=== PATIENT | female | born 1980 | race Caucasian/White ===

== ENCOUNTER 2018-08-07 12:33 | Outpatient (REF) | payer BC, SELFPAY ==
--- NOTE | 2018-08-07 11:30 | PAPFT_PTH ---
PATIENT: Irma Piedra LOC: [facility] U#:[id number] AGE/SX: 38/F ROOM: RE08/07/[address]: RENEE Bentley : 1980 BED: DIS: 08/07/2018 SPEC #: [id number] RECD: 08/07/18 13:16 STATUS: DIPAK REInessa #: [id number] SILVIA: 08/07/18 11:[address]: Gena Leggett DEPT: [facility] Cytology RECD BY: Teetee Weldon ENTERED: 08/07/18 13:16 SP TYPE: PAPFT OTHR DR: Carlos A Dickey Tissues: 1 - CX/ENDOCX FOR PAP SMEARS Procedures: PAP THIN PREP/UVM Screening HPV DNA PROBE Comments: [id number]
== END 2018-08-07 12:53 ==
LOC: LBN 12:33
PROVIDERS: PCP Family Medicine; Visit Provider Nurse Practitioner Family
DX: Z12.4 Encounter for screening for malignant neoplasm of cervix (principal); Z11.51 Encounter for screening for human papillomavirus (HPV)
CPT/HCPCS: 88142; 87624

== ENCOUNTER 2018-09-04 11:48 | Outpatient (REF) | payer BC, SELFPAY ==
--- NOTE | 2018-09-04 11:40 | ENDO_PTH ---
PATIENT: rIma Piedra LOC: [facility] U#:[id number] AGE/SX: 38/F ROOM: RE09/04/[address]: Cherelle Domínguez MD : 1980 BED: DIS: 09/04/2018 SPEC #: [id number] RECD: 09/04/18 17:39 STATUS: DIPAK REInessa #: [id number] SILVIA: 09/04/18 11:[address]: Cherelle Domínguez DEPT: Surgical Specimen RECD BY: Teetee Weldon ENTERED: 09/04/18 17:40 SP TYPE: Endo OTHR DR: Gena Leggett, Carlos A Jones Tissues: 1 - ENDOCERVICAL BX/CURRETTE 2 - CERVICAL BIOPSY 3 - CERVICAL BIOPSY 4 - CERVICAL BIOPSY Procedures: GROSS AND MICRO LEVEL 4 Comments: [id number]
== END 2018-09-04 12:08 ==
LOC: LBN 11:48
PROVIDERS: PCP Family Medicine; Visit Provider Obstetrics & Gynecology
DX: N87.9 Dysplasia of cervix uteri, unspecified (principal); R87.610 Atypical squamous cells of undetermined significance on cytologic smear of cervix (ASC-US); B97.7 Papillomavirus as the cause of diseases classified elsewhere
CPT/HCPCS: 88305

== ENCOUNTER 2018-09-26 03:39 | Outpatient (CLI) | payer BC, SELFPAY ==
--- NOTE | 2018-09-26 08:05 | DI.US_ITS ---
SYMPTOM/DIAGNOSIS: SYMPTOMATIC CHOLELITHIASIS, K80.20, KNOWN LARGE GALLSTONES, INCREASING BILIARY COLIC ABDOMEN ULTRASOUND: The aorta and vena cava are intact. The liver is top limits of normal in size. There is a 3.5 by 3.7 cm. gallstone in the gallbladder fundus. The gallbladder wall is intact. There is no pericholecystic fluid. There is no evidence of ductal dilatation. The pancreas is normal. The spleen is normal. The kidneys are unremarkable, the left kidney measures 10.9 cm. and the right kidney measures 10.8 cm. There is no evidence of free abdominal fluid. IMPRESSION: Findings consistent with cholelithiasis with a large gallstone measuring up to 3.5 by 3.7 cm. in the gallbladder. The findings are similar to a previous study dating back to 11/11/10. No acute abnormality is seen.
[2018-09-26 10:01] LABS: ALT 20 U/L (12-78); AST 9 U/L (15-37); Albumin 3.8 g/dL (3.4-5.0); Alkaline Phosphatase 134 U/L (46-116); Anion Gap 10.6 mmol/L (3-11); BUN 10 mg/dL (7-18); Bilirubin, Total 0.9 mg/dL (0.2-1.0); CO2 24.4 mmol/L (21.0-32.0); CREATININE 0.82 mg/dL (0.55-1.02); Calcium 9.8 mg/dL (8.5-10.1); Chloride 105 mmol/L (98-107); Cholesterol 170 mg/dL (50-200); Glucose 96 mg/dL (70-100); HDL Cholesterol 45 mg/dL (40-60); LDL CHOLESTEROL 112 mg/dL (<100); Potassium 4.2 mmol/L (3.5-5.1); Sodium 140 mmol/L (136-145); Triglyceride 56 mg/dL (30-150)
== END 2018-09-26 03:59 ==
PROVIDERS: PCP Family Medicine; Visit Provider Family Medicine
DX: K80.20 Calculus of gallbladder without cholecystitis without obstruction (principal); Z00.00 Encounter for general adult medical examination without abnormal findings; Z13.220 Encounter for screening for lipoid disorders
CPT/HCPCS: 36415; 80053; 80061; 83721; 76700

== ENCOUNTER 2018-11-13 07:01 | Day surgery (SDC) | payer BC, SELFPAY ==
[2018-11-13] VITALS (10 sets, daily range): BP systolic 90–120; BP diastolic 48–85; PULSE 68–76; RESP 16–27; TEMP 35.1–36.4; O2SAT 92–98
[2018-11-13] MEDS: Lactated Ringers 1,000 ML 100 ML IV (08:05)
[2018-11-13] MEDS: ceFAZolin 2 GM/50 ML BAG IVPB (08:16)
[2018-11-13] MEDS: Bupivacaine 0.25% Pres-Free 30 ML VIAL (08:43)
--- NOTE | 2018-11-13 09:18 | GB_PTH ---
PATIENT: Irma Piedra LOC: [facility] U#:[id number] AGE/SX: 38/F ROOM: RE11/13/[address]: Tamar Godwin : 1980 BED: DIS: 11/13/2018 SPEC #: [id number] RECD: 11/13/18 12:48 STATUS: DIPAK REQ #: [id number] SILVIA: 11/13/18 09:[address]: Tamar Godwin DEPT: Surgical Specimen RECD BY: Teetee Weldon ENTERED: 11/13/18 12:49 SP TYPE: GB OTHR DR: Carlos A Dickey Tissues: 1 - GALLBLADDER Procedures: GROSS AND MICRO LEVEL 3 Comments: [id number]
[2018-11-13] MEDS: Cellulose,Oxidized 4X8 1 PACKET MC (09:21)
--- NOTE | 2018-11-13 09:39 | ROE_ITS ---
Date of service: 11/13/18 Time of Service: 09:38 Operative Note DATE OF PROCEDURE: 11/13/18 PRE-OP DIAGNOSIS: chronic aureliano w/ stones POST-OP DIAGNOSIS: other (same ) PROCEDURE: lap aureliano SURGEON: Tamar Borden RESTRICTIVE PREPARATION OPERATOR: Tamar Ryan ANESTHESIA: GETA ESTIMATED BLOOD LOSS: 10 PATHOLOGY: other COMPLICATIONS: None Patient was transported to: PACU Patient's condition: stable Procedure Description: PRE-OPERATIVE DIAGNOSIS: cholecystitis, cholelithiasis. POST-OPERATIVE DIAGNOSIS: chronic cholecystitis, cholelithiasis PROCEDURE: Laparoscopic cholecystectomy. SURGEON: Tamar Borden DO ANESTHESIA: General. ESTIMATED BLOOD LOSS: Less than 10 mL COMPLICATIONS: none The patient tolerated the procedure without complication. INDICATIONS: The pt seen at the request of regarding acute on chronic cholecystitis, cholelithiasis and is here today for laparoscopic cholecystectomy. Informed consent was obtained, explaining risks and benefits of the procedure including but not limited to bleeding, infection, pneumonia, blood clots, possible damage to bowel, bladder, blood vessels, bile ducts, possible open procedure, complications of general anesthesia and other un foretold complications. PROCEDURE:The patient agrees and is brought to the operative room suite and placed in supine position. Anesthesia was administered per the Department of Anesthesia. The patient did receive IV antibiotics. NG tube and Kaplan catheter are placed. The patient was prepped and draped in the usual sterile fashion using DuraPrep scrub solution. Pause for the cause was done. 20 mL of 1% buffered lidocaine was used for local anesthetization. A stab incision was made in the umbilicus and the Verres inserted. Drop test was positive and insufflation was begun. When 15 mm of pressure was noted on the monitor, the Veress was removed and #5 port inserted. The camera was inserted through the port and shows no damage to underlying structures. A 10 mm port was then placed in the epigastric position under direct visualization following creation of local field blocks as well as two 5 mm ports in the right upper quadrant. The gallbladder fundus was grasped and retracted towards the right shoulder. Infundibulum was grasped and retracted laterally. The hepat-duodenal ligament is entered. The cystic duct and artery are dissected out and the most inferior portion of the gallbladder plate is removed from the liver and the critical view of safety was obtained after clearing away all fatty material. Endo Clips were placed across the duct and artery and these structures are divided. The remainder of the gallbladder was excised from the liver bed. The gallbladder was placed in a bag and brought out. Examination of the gallbladder shows indeed the cystic duct and artery to have been divided. The remainder of the abdomen was copiously irrigated with a liter of saline. All saline is removed. There is no bleeding or bile leakage from the liver bed or the clips sites. The Ruddy-T hompson needle was used to close the 10 mm port site with an 0 Vicryl. All ports and instruments are removed. Pneumoperitoneum is evacuated and the port sites are monitored to make sure there is no bleeding at the time of desufflation. Port sites are irrigated and the skin is closed with 4-0 Monocryl in a running subcuticular fashion. Steri tapes and sterile dressings are applied. The patient tolerated the procedure well without complications, transferred to the recovery room in stable condition. TAMAR BORDEN, DO
--- NOTE | 2018-11-13 09:45 | PDOC.DSDIS_ITS ---
Discharge Plan Disposition Patient Disposition: HOME Condition: Good Discharge Details Reason For Visit: GB removal Attending Provider: Tamar Godwin Primary Care Provider: Carlos A Dickey Home Meds and New Rx's Prescriptions: New tramadol [Ultram] 50 mg tablet 50 mg PO .q4 PRN (Reason: pain) Qty: 14 RF: 0 ibuprofen 800 mg tablet 800 mg PO TID PRN (Reason: pain ) Qty: 30 RF: 4 ondansetron HCl [Zofran] 4 mg tablet 4 mg PO TID-QID PRN (Reason: nausea) Qty: 5 RF: 0 Continued medroxyprogesterone [Depo-Provera] 150 mg/mL suspension 150 mg IM Q 12 WEEKS Qty: 1 RF: 3 Discharge Instructions Additional Instructions: Care after Gallbladder Surgery -You should walk frequently, gradually, increasing the distance. You may climb stairs, just go slowly. -You can take Advil 400mg 3 times a day with food for the first week for pain; you may take your prescription medication as prescribed-in addition to the Advil. Discontinue Advil if it hurts your stomach. Do not take Advil if you are intolerant to aspirin products or have stomach problems. ? Use an ice bag for the first 72 hours. This helps to decrease swelling, which causes pain. It is normal to be more sore/painful and swollen towards the end of the day and first thing in the morning. ? Gallbladder surgery can make you very nauseated; use zofran for nausea, for the first 24 hours. The nausea generally stops after 24 hours. ? Use milk of magnesia or prune juice to prevent constipation (this is a parti cular side effect of pain medication). Do not allow yourself to become constipated. ? Avoid fatty or greasy foods; introduce these slowly, with care, after about 1 month. Follow the low-fat diet sheet that will be given to you at the office or hospital. ? Start out eating very small, bland amounts of food. Do not take pain pills on an empty stomach. - You can remove the band-aids and take a shower 24 hours after surgery. There will be some narrow strips of tape across your incisions (under the band- aids). DO NOT REMOVE THESE. It is all right if they get wet. They will be removed in the doctor?s office. ? Do not go swimming or sit in a hot tube for two weeks. ? Replace the band-aids with clean, dry ones or leave them off. ? There are no stitches to remove. ? Do not drive your car for one week and then only if you have no pain and can move freely. Do not drive if you are taking pain narcotic pain medications. ? You may resume sexual activity whenever pain and soreness subside in 2 weeks. ? Do no lift anything over 5 lbs for the first 10 days. Minimize strenuous activity for the next two weeks. ? You may return to work in one week, or when you feel able ? You should return to Dr. Godwin?s office for a post-op appointment about one week after surgery. My Medications for pain are: ibuprofen and ultram nausea are: Zofran When to Call the Office: ? If the incision becomes red or swollen, or there is more than a little drainage from it. ? If you develop a temperature higher than 100.5 F. ? If your eyes turn yellow ? Vomiting and can?t keep fluids down Activity:: no lifting over 5#'s. no strenuous acitivty x 2 wks. no driving for 3 days Remove Dressings/Wound Care:: 24 hours Shower/Bathe:: 24 hours Diet:: low fat x 1 wk Discharge Orders Discharge Orders: Discharge Order (Routine); Ordered 11/13/18 Ordered By: Tamar Godwin DS: Diagnosis Discharge Diagnosis (1) Chronic cholecystitis with calculus: Start date: 11/13/18 Start time: 09:45 Status: Acute
[2018-11-13] MEDS: fentaNYL 100 MCG/2 ML VIAL IVP (10:15)
[2018-11-13] MEDS: traMADol 50 MG TAB PO (12:06)
== END 2018-11-13 13:05 | disposition home or self-care (01) ==
PROVIDERS: PCP Family Medicine; Visit Provider Surgery
PROC: 0FT44ZZ Resection of Gallbladder, Percutaneous Endoscopic Approach (ICD-10-PCS; CPT 47562; principal; 2018-11-13 08:00)
DX: K80.10 Calculus of gallbladder with chronic cholecystitis without obstruction (principal)
CPT/HCPCS: 47562; 88304; J0690; J1100; J1885; J2405; J3010

== ENCOUNTER 2019-08-04 17:30 | Emergency (ER) | payer BC, SELFPAY ==
[2019-08-04 17:33] VITALS: BP 137/101; PULSE 98; RESP 18; TEMP 36.6; O2SAT 99
--- NOTE | 2019-08-04 18:15 | ED.GENADUL_ITS ---
Discharge Plan Disposition Patient Disposition: HOME Condition: Stable Discharge Details Chief Complaint: Sorethroat Clinical Impression: Viral URI with cough, Pharyngitis Primary Care Provider: Carlos A Dickey ED Provider: Melissa Michelle Home Meds and New Rx's Prescriptions: Continued medroxyprogesterone [Depo-Provera] 150 mg/mL suspension 150 mg IM Q 12 WEEKS Qty: 1 RF: 3 ibuprofen 800 mg tablet 800 mg PO TID PRN (Reason: pain ) Qty: 30 RF: 4 acetaminophen 500 mg Tablet RF: 0 Discharge Instructions Instructions: Pharyngitis (ED), Upper Respiratory Infection (ED), Acute Cough (ED) Additional Instructions: Drink plenty of fluids and get plenty of rest. Alternate tylenol and motrin as needed and directed for pain. Continue with [id number] cough and cold medication. Follow-up with your primary care doctor in 1 week. Return to the emergency department with any worsening or new concerning symptoms. Discharge Data Discharge Physician: Melissa Michelle Medical Decision Making 39-year-old female presents with sore throat, dry cough, runny nose for the past 3 days. 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 She denies any fever, shortness of breath. She is afebrile. She appears nontoxic. Rapid strep negative. Normal ENT exam. Lungs clear. No trismus, drooling or submandibular swelling. No peritonsillar abscess. Discussed with patient that symptoms can likely be viral in nature and recommend symptomatic treatment. Advised to increase fluids, rest. Advised to follow up with the primary care doctor for re-evaluation. Usual and customary return precautions given prior to discharge. HPI General Mode of arrival: ambulatory . Date/Time Provider Initiated Documentation: 08/04/19 17:31 . Limitations to Documentation: no limitations . Information obtained by: patient . History of Present Illness 39 year old F presents to the emergency department with the chief complaint of Cough, sore throat, runny nose, Patient started experiencing this day(s) (3) and it has been constant. No relieving factors improve symptom(s), No exacerbating factors reported . Patient notes cough; denies chest pain, diaphoresis, fever/chills, headaches, loss of appetite, malaise, nausea/vomiting, rash, seizure, shortness of breath, syncope and weakness. Patient did receive the following treatments prior to arrival, other (She has been taking DayQuil) Related Data Home Medications Medication Instructions Recorded Confirmed ibuprofen 800 mg PO TID PRN #30 tab 11/13/18 medroxyprogesterone 150 mg/mL 150 mg IM Q 12 WEEKS #1 vial 07/02/19 08/04/19 intramuscular suspension acetaminophen 08/04/19 Previous Rx's Medication Instructions Recorded ibuprofen 800 mg PO TID PRN #30 tab 11/13/18 medroxyprogesterone 150 mg/mL 150 mg IM Q 12 WEEKS #1 vial 07/02/19 intramuscular suspension Allergies Allergy/AdvReac Type Severity Reaction Status Date / Time levofloxacin [From Levaquin] Allergy Mild Verified 08/04/19 17:36 oxycodone [From Percocet] AdvReac Intermediate Nausea Verified 08/04/19 17:36 General Stated Complaint: Sorethroat JOANNE: 4 Review of Systems All systems reviewed & are unremarkable except as noted in HPI and below Constitutional Constitutional: Reports as per HPI, Denies chills and Denies fever(s) Eyes Eyes: Denies blurry vision ENT Ears, Nose, Mouth, and Throat: Denies dizziness, Reports sore throat and Denies throat swelling Cardiovascular Cardiovascular: Denies chest pain and Denies dyspnea Respiratory Respiratory: Reports cough and Denies dyspnea Gastrointestinal Gastrointestinal: Denies abdominal pain, Denies diarrhea and Denies vomiting Genitourinary Genitourinary: Denies hematuria and Denies dysuria Musculoskeletal Musculoskeletal: Denies back pain and Denies numbness Integumentary/Breasts Skin/Breast: Denies lesions and Denies rash Neurologic Neurologic: Denies dizziness, Denies focal weakness and Denies numbness Allergic/Immunologic Allergic/Immunologic: Denies throat swelling [facility] Medical History Athletes foot (Acute) bilat Chronic cholecystitis with calculus (Acute) Contraception (Chronic 05/19/15) Eczema (Acute) Family history of colon cancer (Chronic 07/05/16) Mother Dx at 58 Plantar fasciitis, left (Chronic) Symptomatic cholelithiasis (Acute) Tobacco use (Chronic 05/19/15) Surgical History H/O tooth extraction (Acute) Hx of cholecystectomy (Resolved 11/13/18) Dr Tamar Godwin, [facility] Family History Mother Colon cancer Social History Smoking/Tobacco Use Status: Current every day Tobacco Type: cigarettes Alcohol Intake: never Drug use: Never Substance use type: does not use Do you feel safe at home: Yes Do you feel safe in your relationship?: Yes Female Reproductive History Menstrual control method: progesterone injection History History 3 Para 2 Hx # Term Pregnancies Multiple births Hx # Pregnancies Ectopic pregnancies AB induced Hx Number of Living Children AB spontaneous Exam Const General: cooperative, healthy appearing and no acute distress HENMT Head: normal to inspection Ears: hearing grossly normal bilaterally, external ears normal and TM's normal bilaterally General nose exam: external nose normal Mouth: oral mucosae normal, no drooling and no trismus Throat: posterior oropharynx normal, tonsils normal, uvula midline and no peritonsillar masses Eyes General: appearance normal, both eyes and all related structures Neck Neck: normal visual inspection, no lymphadenopathy, no meningeal signs, trachea midline, supple and No submandibular swelling Resp Effort & Inspection: normal respiratory effort and able to speak in complete sentences Auscultation: clear to auscultation bilaterally Cardio Rate: regular rate Rhythm: regular rhythm Skin General skin exam: no rashes or lesions noted Neuro General: alert, awake and oriented x3 Motor: muscle tone normal throughout Extrem General: normal to inspection and full ROM Psych Appearance: grossly normal Affect: normal affect Course Vital Signs Vital signs: Vital Signs Temperature 97.9 F 08/04/19 17:33 Pulse 98 H 08/04/19 17:33 Respiratory Rate 18 08/04/19 17:33 Blood Pressure 137/101 H 08/04/19 17:33 Pulse Oximetry 99 08/04/19 17:33 Temperature 97.9 F 08/04/19 17:33 Temperature Source Temporal Artery Scan 08/04/19 17:33 Pulse 98 H 08/04/19 17:33 Respiratory Rate 18 08/04/19 17:33 Blood Pressure 137/101 H 08/04/19 17:33 Blood Pressure Position Sitting 08/04/19 17:33 Pulse Oximetry 99 08/04/19 17:33 Oxygen Delivery Method Room Air 08/04/19 17:33 Oxygen Flow Rate 0 08/04/19 17:33 Pain Level 8 08/04/19 17:33 Lab/Test Results Lab/Test Results: 08/04/19 17:41 Pharynx Streptococcus Screen (MANUEL) - Pending POC Strep Test-KATI(Rapid) Start: 08/04/19 17:39 Freq: .Rapid Strep Test Status: Active Protocol: Document 08/04/19 17:50 MM (Rec: 08/04/19 17:51 MM [id number]) Strep test-KATI(Rapid)-POC POC-Strep test-KATI (Rapid) Negative POC-Strep test-KATI (Rapid) Negative
[2019-08-04 18:23] VITALS: BP 137/101; PULSE 98; RESP 18; TEMP 36.6; O2SAT 99
== END 2019-08-04 18:25 | disposition home or self-care (01) ==
PROVIDERS: Emergency Provider Physician Assistant; PCP Family Medicine
DX: J02.8 Acute pharyngitis due to other specified organisms (principal); J06.9 Acute upper respiratory infection, unspecified; R05 Cough; B34.9 Viral infection, unspecified
CPT/HCPCS: 87880; 99282; 87081

== ENCOUNTER 2019-09-19 10:56 | Outpatient (REF) | payer BC, SELFPAY ==
--- NOTE | 2019-09-19 10:30 | PAPFT_PTH ---
PATIENT: Irma Piedra LOC: [facility]#:[id number] AGE/SX: 39/F ROOM: RE09/19/[address]: RENEE Bentley : 1980 BED: DIS: 09/19/2019 SPEC #: [id number] RECD: 09/19/19 17:31 STATUS: DIPAK REQ #: [id number] SILVIA: 09/19/19 10:[address]: Gena Leggett DEPT: [facility] Cytology RECD BY: Teetee Weldon ENTERED: 09/19/19 17:31 SP TYPE: PAPFT OTHR DR: Carlos A Dickey Tissues: 1 - CX/ENDOCX FOR PAP SMEARS Procedures: PAP THIN PREP/UVM Screening HPV DNA PROBE Comments: [id number]
[2019-09-23 14:23] LABS: Chlamydia Result Negative (Negative); GC Result Negative (Negative)
== END 2019-09-19 11:16 ==
LOC: NCHCN 10:56
PROVIDERS: PCP Family Medicine; Visit Provider Nurse Practitioner Family
DX: Z11.3 Encounter for screening for infections with a predominantly sexual mode of transmission (principal); Z12.4 Encounter for screening for malignant neoplasm of cervix
CPT/HCPCS: 87491; 87591; 88142; 87624

== ENCOUNTER 2020-11-10 11:17 | Outpatient (REF) | payer BC, SELFPAY ==
--- NOTE | 2020-11-10 10:30 | PAPFT_PTH ---
PATIENT: Irma Piedra LOC: [facility] U#:[id number] AGE/SX: 40/F ROOM: RE11/10/[address]: RENEE Bentley : 1980 BED: DIS: 11/10/2020 SPEC #: [id number] RECD: 11/10/20 12:39 STATUS: DIPAK REQ #: [id number] SILVIA: 11/10/20 10:[address]: Gena Leggett DEPT: [facility] Cytology RECD BY: Roula Ashford ENTERED: 11/10/20 12:40 SP TYPE: PAPFT OTHR DR: Carlos A Dickey Tissues: 1 - CX/ENDOCX FOR PAP SMEARS Procedures: PAP THIN PREP/UVM Screening HPV DNA PROBE Comments: [id number]
== END 2020-11-10 11:18 | disposition home or self-care (01) ==
LOC: LBN 11:17
PROVIDERS: PCP Family Medicine; Visit Provider Nurse Practitioner Family
DX: Z12.4 Encounter for screening for malignant neoplasm of cervix (principal); Z11.51 Encounter for screening for human papillomavirus (HPV)
CPT/HCPCS: 88142; 87624

== ENCOUNTER 2021-02-02 01:23 | Outpatient (CLI) | payer BC, SELFPAY ==
--- NOTE | 2021-02-02 10:30 | DI.MAMMO_ITS ---
Exam(s) MAMMO SCREENING EXAM: MAMMO SCREENING CLINICAL HISTORY: screening TECHNIQUE: Mammograms were interpreted according to the usual protocol including computer analysis w [employer] CAD system, tomosynthesis and C-view imaging. COMPARISON: None. Baseline examination. FINDINGS: The breasts are composed of heterogeneously dense fibroglandular densities, Breast Density category C . No suspicious masses or suspicious microcalcifications are seen. No skin thickening or abnormal axillary lymph nodes are seen. IMPRESSION: BI-RADS Category 1, Negative mammogram. Yearly screening mammography is recommended. Breast Density Category C, heterogeneously Dense. The mammogram demonstrates the patient's breast tissue is dense. Dense breast tissue is very common a nd is not abnormal but dense breast tissue can make it harder to find cancer on a mammogram. Also, de nse breast tissue may increase breast cancer risk. This information about the result of the mammogram report was provided to the patient to raise their awareness. Use this report when you speak with the patient about their risks for breast cancer, which includes their family history. At that time, you may recommend additional screening tests (Ultrasound or MRI) as they might be useful based on their r isk. A negative radiographic report should not delay biopsy if a dominant or clinically suspicious mass is present. Up to ten percent of cancers are not identified on mammography. A negative report may reinforce clinical impression. Adenosis and dense breasts may obscure an underlying neoplasm. False positive reports average 6 to 10%.
== END 2021-02-02 01:43 ==
PROVIDERS: PCP Family Medicine; Visit Provider Nurse Practitioner Family
DX: Z12.31 Encounter for screening mammogram for malignant neoplasm of breast (principal); R92.8 Other abnormal and inconclusive findings on diagnostic imaging of breast
CPT/HCPCS: 77063; 77067

== ENCOUNTER 2021-05-05 02:40 | Outpatient (CLI) | payer BC, SELFPAY ==
[2021-05-05 10:10] LABS: Source Nasal/Nares
[2021-05-05 16:46] LABS: COVID-19 PCR Negative (Negative)
== END 2021-05-05 02:41 | disposition home or self-care (01) ==
LOC: LBO 02:40
PROVIDERS: PCP Family Medicine; Visit Provider Surgery
DX: Z20.822 Contact with and (suspected) exposure to COVID-19 (principal); Z01.818 Encounter for other preprocedural examination
CPT/HCPCS: 87635

== ENCOUNTER 2021-05-07 09:08 | Day surgery (SDC) | payer BC, SELFPAY ==
--- NOTE | 2021-05-06 23:14 | W.COLOREPORT ---
Colonoscopy Report Date of procedure: 05/07/21 Pre-op diagnosis general: A poly[ Surgeon: Tamar Godwin Anesthesia Type: General:No Airway Disposition: same day Prep: Miralax/Dulcolax Procedure Description: After informed consent was obtained the patient was taken to the procedure room and placed in a left decubitous position. Monitors were applied and a time out was done. The patients name, date of , procedure, allergies to medications and metal in their body was reviewed. The patient was then sedated. Once sedated and comfortable a rectal exam was done. External exam was normal. Internal exam revealed a normal sphincter tone and no palpable masses. The scope was then introduced and retrofelexed. Nointernal hemorrhoids were identified. The scope was then advanced to the cecum w/out difficulty. The TI and appendiceal orifice were identified. The prep was good. The scope was then slowly retracted over 7 minutes back into the rectum. There are no polyps, AVMs, diverticula visualized today. The scope was removed and the patient was woken up and taken back to Same day surgery in stable condition. The patient tolerated the procedure well and there were no immediate complications. Follow up: The patient should follow up in 5 years unless they develop changes in bowel habits or other new gastrointestinal complaints.
--- NOTE | 2021-05-06 23:15 | PDOC.DSDIS_ITS ---
Discharge Plan Disposition Patient Disposition: HOME Condition: Good Discharge Details Reason For Visit: colon scope Attending Provider: Sara Rodriguez Primary Care Provider: Carlos A Dickey Home Meds and New Rx's Prescriptions: Continued medroxyprogesterone [Depo-Provera] 150 mg/mL syringe 150 mg IM ONCE Qty: 1 RF: 0 medroxyprogesterone [Depo-Provera] 150 mg/mL suspension 150 mg IM Q 12 WEEKS Qty: 1 RF: 3 ibuprofen 800 mg tablet 800 mg PO TID PRN (Reason: pain ) Qty: 30 RF: 4 acetaminophen 500 mg Tablet 500 mg PO DIRECTED RF: 0 Discontinued polyethylene glycol 3350 17 gram/dose powder 238 g PO ONCE Qty: 238 RF: 0 bisacodyl [Dulcolax (bisacodyl)] 5 mg tablet,delayed release (DR/EC) 5 mg PO ONCE Qty: 4 RF: 0 Discharge Instructions Additional Instructions: DSU Colonoscopy Post- Op Instructions Instructions for Everyone who is given Anesthesia: For your safety, please do the following for the next twenty-four (24) hours: *Do Not operate a motor vehicle (car, truck, motorcycle, etc.) *Do Not drink alcoholic beverages or use any recreational drugs for the first 24 hours or while taking pain medications. The medications in your body may have a reaction that can be dangerous. *Do Not make any important decisions or sign any important papers. Findings:normal Follow up: repeat in 5 yrs 1. No lifting over 20 pounds or strenuous activity for the first 24 hours after your procedure. After 24 hours there are no restrictions on your activity but you may feel fatigued for a few days. 2. After you arrive home you may have a light meal and return to your normal diet as you can tolerate it without feeling sick to your stomach. 3. You may have a bloated, gaseous feeling in your belly (abdomen) after a colonoscopy. Passing gas and belching will help. Walking or lying down on your left side with your knees flexed may relieve the discomfort. Call the office at [phone] (Office) or [phone] (Hospital) right away if you notice any of the following: a.Vomiting of blood or ?coffee ground stools?. b.Rectal bleeding 1Tbsp, blood clots or continuous bleeding. c.Severe belly (abdominal) pain. d.A hard distended belly (abdomen) and an inability to pass gas. 4. Please don?t expect to have a normal BM (bowel movement) for 2-3 days after your procedure. 5. If there are questions regarding the findings of your procedure, please contact your doctor 6. If you are unable to contact your doctor with a problem, contact the hospital at [phone]. 7. Continue all your regular medications unless directed otherwise. I understand the above instructions and have no questions. Signature of Patient or Adult Escort Name of Responsible Adult Escort Signature of Nurse Date/Time Activity:: see above Diet:: see above Discharge Orders Discharge Orders: Discharge Order (Routine); Ordered 05/06/21 Ordered By: Tamar Godwin DS: Diagnosis Discharge Diagnosis (1) Tobacco use: Status: Chronic (2) Family history of colon cancer: Status: Chronic
--- NOTE | 2021-05-07 06:43 | ANES.PREOP_ITS ---
General Info Date of Service Date Performed: 05/07/21 Height: 5 ft 3 in Weight: 77.111 kg Body Mass Index (BMI): 30.1 Surgical Procedure: Operation Date: 05/07/21 10:35 Proposed Procedures Side Surgeon radha Godwin, DO Meds Allergies and Home Medications Allergies Allergy/AdvReac Type Severity Reaction Status Date / Time oxycodone [From Percocet] AdvReac Intermediate Nausea Verified 05/07/21 09:14 levofloxacin [From Levaquin] AdvReac Mild nausea, Verified 05/07/21 09:14 low energy Home Medication Medication Instructions Recorded ibuprofen 800 mg PO TID PRN #30 tab 11/13/18 acetaminophen 500 mg PO DIRECTED 08/04/19 medroxyprogesterone 150 mg/mL 150 mg IM Q 12 WEEKS #1 vial 04/27/21 intramuscular suspension Current Visit Medications: Current Medications Generic Name Dose Route Start Last Admin Trade Name Freq PRN Reason Stop Dose Admin Hyoscyamine Sulfate 0.125 mg 05/06/21 23:13 Hyoscyamine 0.125 Mg Sl/Oral/Chew SL DIRECTED PRN Ringer's Solution 1,000 mls @ 80 mls/hr 05/07/21 06:00 IV 05/25/21 23:59 INFUSION MICHELE IV Miscellaneous Supplies 1 each 05/07/21 06:00 Iv Access IV 05/25/21 23:59 DIRECTED MICHELE Sodium Chloride 0 ml 05/07/21 06:00 Normal Saline Flush 10 Ml Syr IV 05/25/21 23:59 PRN PRN Sodium Chloride 0 ml 05/07/21 06:00 Normal Saline 10 Ml Vial IJ 05/25/21 23:59 DIRECTED PRN Sterile Water 0 ml 05/07/21 06:00 Water,Injection,Sterile 10 Ml Vial IJ 05/25/21 23:59 DIRECTED PRN PFSH Active Problems Active Problems: Problem Status Onset Code Plantar fasciitis, left M72.2 Tobacco use 05/19/15 Z72.0 Family history of colon cancer 07/05/16 Z80.0 Contraception 05/19/15 Z30.9 Medical History Medical History Athletes foot bilat Chronic cholecystitis with calculus Contraception (05/19/15) Eczema Family history of colon cancer (07/05/16) Mother Dx at 58 Plantar fasciitis, left Symptomatic cholelithiasis Tobacco use (05/19/15) Surgical History Surgical History H/O tooth extraction Hx of cholecystectomy (11/13/18) Dr Tamar Godwin, [facility] Tobacco Smoking/Tobacco Use Status: Current every day Tobacco Type: cigarettes Smoking cigarettes per day: 30 Alcohol Alcohol Intake: current Alcohol intake frequency: a few times a month Substance Use Substance use: Never Substance use type: does not use Prental History History 3 Para 2 Hx # Term Pregnancies Multiple births Hx # Pregnancies Ectopic pregnancies AB induced Hx Number of Living Children AB spontaneous Vital Signs and Lab Results Lab Results Blood Type / Crossmatch: No Data to Display Complete Blood Count: No Data to Display Complete Metabolic Panel: No Data to Display Liver Function Panel: No Data to Display Coagulation Panel: No Data to Display Cardiac Panel: No Data to Display Arterial Blood Gas: No Data to Display Venous Blood Gas: No Data to Display Pancreas Panel: No Data to Display Thyroid Panel: No Data to Display Infectious Disease: Coronavirus (COVID-19)(PCR) Negative (Negative) 05/05/21 08:40 05/05/21 Coronavirus 2019 Source Nasal/Nares 05/05/21 08:40 05/05/21 Blood Cultures: No Data to Display Toxicology Panel: No Data to Display Panel: Urine HCG, Qualitative Negative 04/27/21 08:57 04/27/21 Anesthesia Assessment and Plan Anesthesia History Personal History: No History of Anesthesia Complications Family History: No Family History of Anesthesia Complications Exercise Tolerance Exercise Tolerance: Metabolic Equivalents>4 Pertinent Negatives Pertinent Negatives: No Symptoms of GERD, No Major Cardiovascular Symptoms or Complaints, No Major Pulmonary Symptoms or Complaints and No History of CVA/TIA Cardiac & Pulmonary Exam Cardiac Exam: Normal S1/S2 Heart Sounds Pulmonary Exam: Clear Bilateral Breath Sounds Implantable Cardiac Device Does patient have a Pacemaker or an ICD?: No Airway Exam Known Difficult Airway: No Mallampati Class: 2 Mouth Opening: Normal (> 3cm) Thyromental Distance: Greater than 3 cm Facial Hair: Full Quintero Neck Range of Motion: Full ROM Neck Circumference: Normal Teeth Condition: Normal Dentition ASA Classification ASA Score: ASA 2 Emergency Case?: No NPO Status NPO Status: NPO Clears >2 hours, Solids >8 hours Status Status: Negative HCG Anesthesia Plan Resuscitation Status: Full Code Anesthesia Technique: General Anesthesia Airway Planned: Natural Airway Monitors Used: Standard Monitors Preoperative Comments:: 41 yo female for colonoscopy due to family history of colon cancer. Sig PMHx: smoker. Previous Anes: Mac 3 2a, easy mask.
[2021-05-07 09:21] VITALS: BP 109/82; PULSE 66; RESP 18; TEMP 36.7; O2SAT 98
[2021-05-07] MEDS: Lactated Ringers 1,000 ML 80 ML IV (09:32)
[2021-05-07 09:35] VITALS: BMI 30.1
[2021-05-07 10:20] VITALS: BP 110/87; PULSE 63; RESP 16; TEMP 36.6; O2SAT 100
--- NOTE | 2021-05-07 10:29 | W.ANESPOSTOP ---
Postoperative Evaluation Date, Time and Location Date Performed: 05/07/21 Time Performed: 10:20 Patient Location: Day Surgery Unit Vital Signs Most Recent Imported Vital Signs: Most Recent Vital Signs Temp Pulse Resp BP Pulse Ox 36.7 C 66 18 109/82 98 05/07/21 09:21 05/07/21 09:21 05/07/21 09:21 05/07/21 09:21 05/07/21 09:21 Most Recent Manually Entered Vital Signs: Adult Blood Pressure: 110/87 Heart Rate: 72 Respirations: 16 Oxygen Saturation (%): 100 Temperature (C): 36.3 C Pain Score (0-10 Scale): 0 Pain Score Most Recent Pain Score: Most Recent Pain Score Pain Level 0 05/07/21 09:21 Assessment Mental Status: Awake (Alert & Oriented to Patient Baseline) Airway and Respiratory Function: Patent airway with normal (patient baseline) respiratory exam Cardiovascular Function: Hemodynamically Stable Hydration Status: Adequately Hydrated Nausea & Vomiting: No Nausea or Vomiting Pain: Pt. Denies Any Pain Peripheral Nerve Block: Patient did not receive a nerve block
[2021-05-07 10:45] VITALS: BP 110/87; PULSE 72; RESP 16; TEMPC 36.3; O2SAT 100
[2021-05-07 10:50] VITALS: BP 123/80; PULSE 62; RESP 18; TEMP 36.4; O2SAT 100
== END 2021-05-07 11:08 | disposition home or self-care (01) ==
PROVIDERS: PCP Family Medicine; Visit Provider Surgery
PROC: 0DJD8ZZ Inspection of Lower Intestinal Tract, Via Natural or Artificial Opening Endoscopic (ICD-10-PCS; CPT 45378; principal; 2021-05-07 10:30)
DX: Z12.11 Encounter for screening for malignant neoplasm of colon (principal); Z80.0 Family history of malignant neoplasm of digestive organs
CPT/HCPCS: 45378; 81025

== ENCOUNTER 2022-02-14 02:43 | Outpatient (CLI) | payer BC, SELFPAY ==
--- NOTE | 2022-02-14 17:00 | DI.MAMMO_ITS ---
Exam(s) MAMMO SCREENING EXAM: MAMMO SCREENING CLINICAL HISTORY: screening TECHNIQUE: Mammograms were interpreted according to the usual protocol including computer analysis w [employer] CAD system, tomosynthesis and C-view imaging. COMPARISON: FINDINGS: The breasts are of moderate density with fairly symmetrical distribution of fibroglandular tissue. N o dominant mass or clumped microcalcification is identified in either breast. The current examinatio n is compared with previous examination of January 2021 and there has been no gross interval change in appearance in comparison with the prior study. IMPRESSION: No specific evidence of malignancy at this time. Routine screening examinations are suggested at ye duran intervals in this age group according to the ACR guidelines. BI-RADS Category 1 - Negative Breast Density - Category B - Scattered areas of fibroglandular density
== END 2022-02-14 03:03 ==
PROVIDERS: PCP Family Medicine; Visit Provider Nurse Practitioner Family
DX: Z12.31 Encounter for screening mammogram for malignant neoplasm of breast (principal)
CPT/HCPCS: 77063; 77067

== ENCOUNTER 2024-02-14 21:22 | Emergency (ER) | payer OTHER, SELFPAY ==
--- NOTE | 2024-02-14 21:30 | DI.RAD_ITS ---
Exam(s) XR HAND RT COMPLETE EXAM: XR HAND RT COMPLETE CLINICAL HISTORY: Inj. TECHNIQUE: 2D digital imaging was performed. Three views. COMPARISON: CR RIGHT HAND COMPLETE from 03/26/2010 FINDINGS: BONES: Spiral fracture of the shaft of the 5th metacarpal with mild displacement. No significant ang ulation. No additional fractures. No bony destructive lesion is seen. JOINTS: No dislocation present. SOFT TISSUE: Dorsal swelling. IMPRESSION: Fifth metacarpal fracture. DATA REPOSITORY: RADIATION DOSE DELIVERED:
[2024-02-14 21:32] VITALS: BP 145/85; PULSE 75; RESP 15; TEMP 36.8; O2SAT 99
--- NOTE | 2024-02-14 22:35 | ED.GENADUL_ITS ---
Discharge Plan Disposition Patient Disposition: Home Condition: Stable Discharge Details Clinical Impression: Fracture of fifth metacarpal bone of right hand Primary Care Provider: Carlos A Dickey ED Provider: Jocelyn Dykes Home Meds and New Rx's Prescriptions: No Action medroxyprogesterone 150 mg/mL syringe See Rx Instructions .ROUTE .COMPLEX Qty: 1 0RF Dose Instruction: ADMINISTER 1 ML(150MG) IN THE MUSCLE EVERY 3 MONTHS Rx Instructions: ADMINISTER 1 ML(150MG) IN THE MUSCLE EVERY 3 MONTHS ibuprofen 800 mg tablet 800 mg PO TID PRN (Reason: pain ) Qty: 30 4RF Rx Instructions: take w/ food acetaminophen 500 mg Tablet 500 mg PO DIRECTED Discharge Instructions Instructions: Hand Fracture ED Additional Instructions: You were seen in the emergency department today for evaluation of a fall and were found to have a fracture of the fifth metacarpal, the bone in the hand underneath the pinky. You were placed in a splint but need to follow-up with orthopedics in the next few days to discuss this visit and any symptoms that change, worsen, or persist. You can use Tylenol and ibuprofen for symptomatic management of pain as well as ice and elevation for swelling. Thank you for allowing us to be part of your care. Referrals: Joe Kowalski MD [ [facility] STAFF PHYSICIAN] - 1 week HPI General Mode of arrival: ambulatory . Date/Time Provider Initiated Documentation: 02/14/24 21:34 . Limitations to Documentation: no limitations . Information obtained by: patient and old records reviewed . HPI Narrative: MDM: This is a 44-year-old female patient presenting for evaluation of a right hand injury. Differential includes but is not limited to fracture, dislocation, ligamentous injury, contusion, certainly considered neurovascular injury though the patient has no evidence of neurovascular derangement on my physical examination. She reassuringly did not sustain head, neck, back, or other upper extremity injury during this event. Her abrasions on her knee are not assoc iated with any limitation in range of motion or other concerning knee injury findings. We will obtain an x-ray of her affected right hand. The patient was offered a tetanus vaccine given her open wounds and at this time has declined. ED Course: I independently interpreted the patient's x-ray, which shows a spiral fifth metacarpal fracture without significant displacement. The patient was placed in an ulnar gutter splint, with good neurovascular examination before and after this intervention. She will follow-up with orthopedics in the next week to discuss next Epson management. At this time, the patient has had a full medical evaluation and is safe for discharge to home. They are hemodynamically stable, ambulatory, and tolerating PO. They are understanding of the follow-up plan and return precautions. They left our facility without incident. Jocelyn Dykes MD HPI: This is a 44-year-old female patient, previously healthy is presenting for evaluation of right hand injury. The patient was carrying some objects today when she fell, landing and hyperextending her right pinky. She is right-hand dominant, but was able to go about her day with taping to provide support. At t he end of the day she noted that the swelling in her hand and the pain had worsened, prompting her to seek care. She has been taking agyn-uvk-uzdargw medications and using ice. The patient reports that prior to this event she was in her normal state of health. She states that she is not experiencing any weakness or loss of sensation distal to the injury. She did have a scrape on her knee and a small cut on the end of her finger that are now hemostatic and bandaged. She did not strike her head, lose consciousness, and this event was not preceded by any medical changes such as syncope, chest pain, or dizziness. Exam: Gen: Awake and alert, in no apparent distress HEENT: Non-icteric sclera Neck: Supple, no C-spine tenderness Lungs: No apparent respiratory distress, normal respiratory effort. CV: Appears well perfused Abdomen: Non-distended MSK: Moves 4 extremities without apparent limitation in ROM with the exception of the right hand, which has tenderness, swelling, and ecchymosis over the area of the fifth metacarpal and hypothenar eminence. Patient has brisk capillary refill and intact sensation distal to this injury. No anatomical snuffbox tenderness. Skin: Visualized skin without rashes, cyanosis. Neuro: Normal Gait, no obvious focal deficits or facial asymmetry. Speaks in full, clear sentences. Psych: Appropriate for situation. Related Data Home Medications ?Medication ?Instructions ?Recorded ?Confirmed ibuprofen 800 mg tablet 800 mg PO TID PRN pain #30 tabs 11/13/18 02/14/24 acetaminophen 500 mg tablet 500 mg PO DIRECTED 08/04/19 02/14/24 medroxyprogesterone 150 mg/mL See Rx Instructions .Route 11/21/23 02/14/24 intramuscular syringe .COMPLEX #1 mL Previous Rx's ?Medication ?Instructions ?Recorded ibuprofen 800 mg tablet 800 mg PO TID PRN pain #30 tabs 11/13/18 medroxyprogesterone 150 mg/mL See Rx Instructions .Route 11/21/23 intramuscular syringe .COMPLEX #1 mL Allergies Allergy/AdvReac Type Severity Reaction Status Date / Time oxycodone (From Percocet) AdvReac Intermediate Nausea Verified 02/14/24 21:53 levofloxacin (From Levaquin) AdvReac Mild nausea, Verified 02/14/24 21:53 low energy General Stated Complaint: Orthopedic JOANNE: 4 Course Vital Signs Vital signs: Vital Signs Temperature 36.8 C 02/14/24 21:32 Pulse 75 02/14/24 21:32 Respiratory Rate 15 02/14/24 21:32 Blood Pressure 145/85 H 02/14/24 21:32 Pulse Oximetry 99 02/14/24 21:32 Temperature 36.8 C 02/14/24 21:32 Temperature Source Tympanic 02/14/24 21:32 Pulse 75 02/14/24 21:32 Respiratory Rate 15 02/14/24 21:32 Respiratory Effort Normal, Non-Labored 02/14/24 21:49 Blood Pressure 145/85 H 02/14/24 21:32 Blood Pressure Position Sitting 02/14/24 21:32 Pulse Oximetry 99 02/14/24 21:32 Oxygen Delivery Method Room Air 02/14/24 21:32 Oxygen Flow Rate 0 02/14/24 21:32 Pain Level 5 02/14/24 21:32 Procedures Orthopedic Splinting/Casting Injury #1: Side: right Upper Extremity Injury Location: hand Upper Extremity Immobilizer: ulnar gutter Additional Comments: Custom splint created by Dr. Jocelyn Dykes Medical Decision Making Quality:SDOH Health Related Social Needs: No Data to Display PFSH All Active Problems (Updated 02/14/24 @ 22:38 by Jocelyn Dykes MD) Fracture of fifth metacarpal bone of right hand (Acute) Plantar fasciitis, left (Chronic) Tobacco use (Chronic 05/19/15) Family history of colon cancer (Chronic 07/05/16) Mother Dx at 58 Contraception (Chronic 05/19/15) Medical History (Updated 02/14/24 @ 22:38 by Jocelyn Dykes MD) Chronic cholecystitis with calculus Eczema Athletes foot bilat Symptomatic cholelithiasis Surgical History (Updated 06/16/21 @ 13:21 by Rachel Shah) History of colonoscopy (~04/2021) Hx of cholecystectomy (11/13/18) Dr Tamar Godwin, [facility] H/O tooth extraction Family History Mother Colon cancer Social History Smoking/Tobacco Use Status: Current every day Tobacco Type: e-cigarettes Smoking risk assessment performed?: Yes Alcohol Intake: current Alcohol Intake frequency: a few times a month Drug use: Never Substance use type: does not use Housing: house Do you feel safe at home: Yes Do you feel safe in your relationship?: Yes Female Reproductive History Menstrual control method: progesterone injection History History 3 Para 2 Hx # Term Pregnancies Multiple births Hx # Pregnancies Ectopic pregnancies AB induced Hx Number of Living Children AB spontaneous
--- NOTE | 2024-02-14 22:38 | DI.VRAD_ITS ---
PROCEDURE INFORMATION: Exam: XR Right Hand Exam date and time: 02/14/2024 9:45 PM Age: 44 years old Clinical indication: Other: Inj TECHNIQUE: Imaging protocol: Radiologic exam of the right hand. Views: 3 or more views. COMPARISON: No relevant prior studies available. FINDINGS: Bones/joints: There is a spiral fracture of the shaft of the 5th metacarpal bone with no intra-articular extension. No dislocation. Soft tissues: Soft swelling overlying the 5th metacarpal. IMPRESSION: Spiral minimally displaced fracture of the shaft 5th metacarpal bone with overlying soft swelling. Dictated and Authenticated by: Baron Blackwell MD. Ordering:GERMANIA Mars MD
== END 2024-02-14 22:59 | disposition home or self-care (01) ==
PROVIDERS: Emergency Provider Emergency Medicine; PCP Family Medicine
DX: S62.306A Unspecified fracture of fifth metacarpal bone, right hand, initial encounter for closed fracture (principal); W19.XXXA Unspecified fall, initial encounter
CPT/HCPCS: 26600; 99283; 73130

== ENCOUNTER 2024-02-23 08:41 | Outpatient (CLI) | payer OTHER, SELFPAY ==
--- NOTE | 2024-02-23 08:00 | DI.RAD_ITS ---
Exam(s) XR HAND RT LIMITED EXAM: XR HAND RT LIMITED INDICATION: f/u 5TH METACARPAL FX. COMPARISON: CR,XR XR HAND RT COMPLETE from 02/14/2024 TECHNIQUE: 2D digital imaging was performed. Two views. FINDINGS: Stable alignment of 5th metacarpal fracture. No new abnormalities. DATA REPOSITORY: RADIATION DOSE DELIVERED:
== END 2024-02-23 08:42 | disposition home or self-care (01) ==
LOC: DIORS 08:41
PROVIDERS: PCP Family Medicine; Referring Provider Family Medicine; Visit Provider Physician Assistant
DX: S62.306A Unspecified fracture of fifth metacarpal bone, right hand, initial encounter for closed fracture (principal); X58.XXXA Exposure to other specified factors, initial encounter
CPT/HCPCS: 73120

== ENCOUNTER 2024-03-01 08:29 | Outpatient (CLI) | payer OTHER, SELFPAY ==
--- NOTE | 2024-03-01 08:15 | DI.RAD_ITS ---
Exam(s) XR HAND RT LIMITED EXAM: XR HAND RT LIMITED CLINICAL HISTORY: F/U 5TH METACARPAL FX. TECHNIQUE: 2D digital imaging was performed of the right hand. Two images were obtained. PA and lat eral views were obtained. COMPARISON: CR XR HAND RT LIMITED from 02/23/2024 FINDINGS: BONES: There is no change in alignment of the 5th metacarpal fracture. No new fractures identified. No bony destructive lesion is seen. JOINTS: No dislocation present. SOFT TISSUE: Normal. IMPRESSION: Stable alignment of the 5th metacarpal fracture. DATA REPOSITORY: RADIATION DOSE DELIVERED:
== END 2024-03-01 08:30 | disposition home or self-care (01) ==
LOC: DIORS 08:29
PROVIDERS: Visit Provider Physician Assistant
DX: S62.346D Nondisplaced fracture of base of fifth metacarpal bone, right hand, subsequent encounter for fracture with routine healing (principal); X58.XXXD Exposure to other specified factors, subsequent encounter
CPT/HCPCS: 73120

== ENCOUNTER 2024-08-08 13:38 | Outpatient (REF) | payer BC, SELFPAY ==
--- NOTE | 2024-08-08 13:35 | PAPFT_PTH ---
PATIENT: Irma Piedra LOC: [facility] U#:[id number] AGE/SX: 44/F ROOM: RE08/08/[address]: Juhi Mansfield MD : 1980 BED: DIS: 08/08/2024 SPEC #: [id number] RECD: 08/08/24 17:29 STATUS: DIPAK REQ #: [id number] SILVIA: 08/08/24 13:[address]: Juhi Mansfield DEPT: [facility] Cytology RECD BY: Teetee Weldon ENTERED: 08/08/24 17:30 SP TYPE: PAPFT OTHR DR: Jessica Local Tissues: 1 - CX/ENDOCX FOR PAP SMEARS Procedures: PAP THIN PREP/UVM Screening HPV DNA PROBE Comments: [id number] (HPV 16 & 18/45) (CHLAMYDIA/GC)
[2024-08-09 12:41] LABS: Chlamydia Result Negative (Negative); GC Result Negative (Negative)
== END 2024-08-08 13:39 | disposition home or self-care (01) ==
LOC: LBN 13:38
PROVIDERS: Visit Provider Obstetrics & Gynecology
DX: K62.5 Hemorrhage of anus and rectum (principal); Z80.0 Family history of malignant neoplasm of digestive organs; Z01.419 Encounter for gynecological examination (general) (routine) without abnormal findings
CPT/HCPCS: 87491; 87591; 88142; 87624

== ENCOUNTER 2024-08-27 02:19 | Outpatient (CLI) | payer BC, SELFPAY ==
--- NOTE | 2024-08-27 15:45 | DI.MAMMO_ITS ---
Exam(s) MAMMO SCREENING EXAM: MAMMO SCREENING CLINICAL HISTORY: screening. TECHNIQUE: Bilateral full field digital CC and MLO mammographic images were obtained with 3D tomosyn thesis and utilizing computer aided detection (CAD). COMPARISON: Prior mammograms were reviewed. FINDINGS: There has been no significant change in the appearance and distribution of the fibroglandular tissue. There are no new spiculated masses nor malignant appearing microcalcification groups. There is no significant architectural distortion nor skin thickening-retraction. IMPRESSION: No radiographic evidence of malignancy. BI-RADS Category 1 - Negative Breast Density - Category B - Scattered areas of fibroglandular density Breast density Category C or D implies that the patient has dense breast tissue. Dense breast tissue can make it harder to find cancer on a mammogram. Dense breast tissue is also associated with an incr eased risk of breast cancer. This information about the result of the mammogram report was provided to the patient to raise their awareness. Use this report when you speak with the patient about their risks for breast cancer, which includes their family history. At that time, you may recommend additional screening tests (Ultrasoun d or MRI) as these tests may add significant information. A negative radiographic report should not delay biopsy if a dominant or clinically suspicious mass is present. Up to ten percent of cancers are not identified on mammography. A negative report may reinforce clinical impression. Adenosis and dense breasts may obscure an underlying neoplasm. False positive reports average 6 to 10%. Patient will receive a letter notifying them of these results.
== END 2024-08-27 02:39 ==
LOC: DI 02:19
PROVIDERS: Visit Provider Obstetrics & Gynecology
DX: Z12.31 Encounter for screening mammogram for malignant neoplasm of breast (principal); R92.323 Mammographic fibroglandular density, bilateral breasts
CPT/HCPCS: 77063; 77067

== ENCOUNTER 2025-05-22 08:28 | Emergency (ER) | payer BC, OTHER, SELFPAY ==
[2025-05-22 08:30] VITALS: BP 172/114; PULSE 106; RESP 18; TEMP 37; O2SAT 98
[2025-05-22 08:36] VITALS: BP 172/114; PULSE 106; RESP 18; TEMP 37; O2SAT 98
--- NOTE | 2025-05-22 09:01 | ED.GENADUL_ITS ---
Discharge Plan Disposition Patient Disposition: Home Condition: Stable Discharge Details Clinical Impression: Low back pain Primary Care Provider: None,None ED Provider: Jocelyn Dykes Home Meds and New Rx's Prescriptions: New prednisone 20 mg tablet 40 mg PO DAILY 4 Days Qty: 8 0RF Rx Instructions: Start 05/23 cyclobenzaprine 10 mg tablet 10 mg PO TID PRNQty: 7 0RF No Action medroxyprogesterone 150 mg/mL syringe See Rx Instructions .ROUTE .COMPLEX Qty: 1 4RF Dose Instruction: ADMINISTER 1 ML(150 MG) IN THE MUSCLE EVERY 3 MONTHS Rx Instructions: ADMINISTER 1 ML(150 MG) IN THE MUSCLE EVERY 3 MONTHS ibuprofen 800 mg tablet 800 mg PO TID PRN (Reason: pain ) Qty: 30 4RF Rx Instructions: take w/ food acetaminophen 500 mg Tablet 500 mg PO DIRECTED calcium carbonate-vitamin D2 600 mg calcium- 200 unit tablet 1 tab PO BID Discharge Instructions Instructions: Low Back Pain (DC) Additional Instructions: You were seen in the emergency department today for evaluation of low back pain. In our department you had a full physical examination performed, and received medications for management of your pain. As we discussed, low back pain can be a challenging diagnosis to make with imaging in the emergency department like x- ray, and we are holding on any imaging at this time. However, you will require some ongoing multimodal pain management to improve your pain, and should be reevaluated by your primary care provider to discuss any ongoing symptoms and whether a outpatient order for imaging should be placed. Please use therapeutic dosing of Tylenol (acetaminophen) & Advil (ibuprofen) in an alternating fashion as follows: Take 1000mg of Tylenol every 6 hours without missing doses- that is 4 times per day. [place] in between the Tylenol doses, take 600mg of Advil also on a 6 hour schedule, that is also 4 times per day. With this strategy, you will be taking something for fever/pain as often as every 3 hours. The daily maximum dosing of Tylenol is 4000mg, and the daily maximum dosing of Advil is 2400mg. Please note that some common cold medications & prescription pain medications may contain acetaminophen and you need to read OTC drug labels and factor that in to maximum daily doses. Please purchase lidocaine patches [id number] and use them in the area of maximal pain. I have sent you a short prescription of muscle relaxing medication known as Flexeril, which you can take as needed for severe pain or muscle cramping. I recommend that you avoid driving, operating machinery, and drinking alcohol while on this medication as it can cause excessive fatigue. I have also sent you a prescription for a prednisone burst, which can reduce inflammation in your back and improve pain. Please follow-up with your primary care provider in the next few days to discuss this visit and any symptoms that change, worsen, or persist. Thank you for allowing us to be part of your care. Stand Alone Forms: Portal Information HPI General Mode of arrival: ambulatory . Date/Time Provider Initiated Documentation: 05/22/25 08:40 . Limitations to Documentation: no limitations . Information obtained by: patient and old records reviewed . HPI Narrative: This is a 45-year-old female patient without significant past medical history presenting for evaluation of 6 days of back pain. The patient reports that she lifted a heavy bag full of bottles of soda, and had some discomfort in her right lower back. She states that this discomfort has persisted since that time despite taking Tylenol, using heat and Biofreeze. She states that she has not noted any radiating of the pain but does sometimes have some muscle spasms and cramping. She has not had any numbness, tingling, or weakness. Denies bowel or bladder dysfunction or saddle anesthesia, has not had fevers or chills. Last dose of Tylenol was at 2 AM, she states that she has been wearing a back brace with some improvement, has not sustained any significant falls, trauma, or other injuries. No history of back surgery. States that it is difficult to find a comfortable position. Related Data Home Medications ?Medication ?Instructions ?Recorded ?Confirmed ibuprofen 800 mg tablet 800 mg PO TID PRN pain #30 tabs 11/13/18 05/22/25 acetaminophen 500 mg tablet 500 mg PO DIRECTED 03/1505/22/25 medroxyprogesterone 150 mg/mL See Rx Instructions .Rou te 08/12/24 05/22/25 intramuscular syringe .COMPLEX #1 mL calcium carb-ergocalciferol (vit 1 tab PO BID 05/22/25 05/22/25 D2) 600 mg calcium-200 unit tablet cyclobenzaprine 10 mg tablet 10 mg PO TID PRN #7 tabs 05/22/25 prednisone 20 mg tablet 40 mg (2 x 20 mg) PO DAILY 4 days 05/22/25 #8 tabs Previous Rx's ?Medication ?Instructions ?Recorded ibuprofen 800 mg tablet 800 mg PO TID PRN pain #30 tabs 11/13/18 medroxyprogesterone 150 mg/mL See Rx Instructions .Rou te 08/12/24 intramuscular syringe .COMPLEX #1 mL cyclobenzaprine 10 mg tablet 10 mg PO TID PRN #7 tabs 05/22/25 prednisone 20 mg tablet 40 mg (2 x 20 mg) PO DAILY 4 days 05/22/25 #8 tabs Allergies Allergy/AdvReac Type Severity Reaction Status Date / Time oxycodone (From Percocet) AdvReac Intermediate Nausea Verified 05/22/25 08:35 levofloxacin (From Levaquin) AdvReac Mild nausea, Verified 05/22/25 08:35 low energy General Stated Complaint: Nk/Back Pain JOANNE: 3 Exam Narrative Exam Narrative: Gen: Awake and alert, in no apparent distress HEENT: Non-icteric sclera Neck: Supple Lungs: No apparent respiratory distress, normal respiratory effort. CV: Appears well perfused, strong distal pulses, heart with regular rate and rhythm at the time of this provider's examination Abdomen: Non-distended, soft MSK: Moves 4 extremities without apparent limitation in ROM. The patient has no midline T or L-spine pain or step-offs, has tenderness to palpation over the right sided SI joint region without overlying skin change. No CVA tenderness. Pelvis is stable to AP compression, no tenderness to palpation over the buttocks or lateral hip. The patient has reproduction of her pain with twisting, movement Skin: Visualized skin without rashes, cyanosis. Neuro: Normal Gait, 5 out of 5 strength bilateral lower extremities, symmetrical, no sensory deficits. Face symmetrical, speaks in full, clear sentences. Psych: Appropriate for situation. Course Vital Signs Vital signs: Vital Signs Temperature 37 C 05/22/25 08:30 Pulse 106 H 05/22/25 08:30 Respiratory Rate 18 05/22/25 08:30 Blood Pressure 172/114 H 05/22/25 08:30 Pulse Oximetry 98 05/22/25 08:30 Temperature 37 C 05/22/25 08:36 Temperature Source Temporal Artery Scan 05/22/25 08:36 Pulse 106 H 05/22/25 08:36 Respiratory Rate 18 05/22/25 08:36 Blood Pressure 172/114 H 05/22/25 08:36 Blood Pressure Position Sitting 05/22/25 08:36 Pulse Oximetry 98 05/22/25 08:36 Oxygen Delivery Method Room Air 05/22/25 08:36 Oxygen Flow Rate 0 05/22/25 08:36 Lab/Test Results Lab/Test Results: POC- Test(urine) Negative Medical Decision Making This is a 45-year-old female patient presenting for evaluation of low back pain. My differential includes but is not limited to sacroiliitis, considered lumbar disc disease, muscle strain, spinal stenosis. The patient has no red flag symptoms such as neurodeficits, fever or chills, bowel or bladder incontinence to suggest spinal cord compressive syndrome such as cauda equina, spinal epidural abscess or hematoma, and has no neurodeficits concerning for transverse myelitis. The pain does not radiate, making sciatica less likely. No trauma to suggest fracture or dislocation. I had a shared decision-making conversation with the patient regarding imaging, given the brief duration of symptoms and the lack of red flags I do not feel that there is significant benefit to pursuing x-ray or CT imaging, and MRI is not available in our facility at this time. The patient is amenable to holding on imaging and pursuing multimodal pain control. I will provide her with Tylenol, Toradol, Lidoderm, and Flexeril. I did obtain a urinalysis and U. Preg to evaluate for UTI or renal stone as the cause of her symptoms, this was negative and without hematuria or infectious findings. Her urine test was negative. -On reevaluation, the patient's pain has improved, we did discuss a prednisone burst and provided her with a first dose here today and sent the rest of the course to her pharmacy. I also sent her home with a take-home course of Flexeril and a small amount sent to her pharmacy for ongoing muscle spasm management. I did employee counselor the patient on conservative multimodal pain management with Tylenol, ibuprofen, and Lidoderm patches. At this time, the patient has had a full medical evaluation and is safe for discharge to home. They are hemodynamically stable, ambulatory, and tolerating PO. They are understanding of the follow-up plan and return precautions. They left our facility without incident. Jocelyn Dykes MD [facility] All Active Problems Low back pain (Acute) Blood per rectum (Acute) Plantar fasciitis, left (Chronic) Tobacco use (Chronic 05/19/15) Medical History (Updated 05/22/25 @ 10:22 by Jocelyn Dykes MD) Family history of colon cancer (07/05/16) Mother Dx at 58 Contraception (05/19/15) depoprovera Eczema Athletes foot bilat Surgical History (Updated 06/16/21 @ 13:21 by Rachel Shah [facility]) History of colonoscopy (~04/2021) Hx of cholecystectomy (11/13/18) Dr Tamar Godwin, [facility] H/O tooth extraction Family History Mother Colon cancer Social History Smoking/Tobacco Use Status: Current every day Tobacco Type: e-cigarettes Tobacco: How many years used: 27 Quit status: not considering quitting Smoking risk assessment performed?: Yes Alcohol Intake: never Drug use: Never Substance use type: does not use Housing: house Do you feel safe at home: Yes Do you feel safe in your relationship?: Yes Female Reproductive History Menstrual control method: progesterone injection History History 3 Para 2 Hx # Term Pregnancies Multiple births Hx # Pregnancies Ectopic pregnancies AB induced Hx Number of Living Children AB spontaneous Past Pregnancies Del. Date GA/Weeks # Preg Succ Route Wgt Sex Labor Lgth Anesth esia Location Prov Complic 06/11/[address] [facility] 11/[facility]/[address] [facility]
[2025-05-22] MEDS: Ketorolac 30 MG/ML VIAL IM (09:02)
[2025-05-22] MEDS: Cyclobenzaprine 10 MG TAB PO (09:02)
[2025-05-22] MEDS: Lidocaine 5% Patch 1 PATCH TP (09:02)
[2025-05-22] MEDS: Acetaminophen 500 MG TAB 1000 MG PO (09:02)
[2025-05-22 09:04] LABS: Glucose Negative (Negative)
[2025-05-22 10:20] VITALS: BP 118/93; PULSE 64; RESP 20; O2SAT 97
[2025-05-22] MEDS: predniSONE 20 MG TAB 40 MG PO (10:31)
[2025-05-22] MEDS: Cyclobenzaprine 10 MG TAB, 3 TABS/BTL PO (10:32)
== END 2025-05-22 10:34 | disposition home or self-care (01) ==
PROVIDERS: Emergency Provider Emergency Medicine
DX: M54.50 Low back pain, unspecified (principal)
CPT/HCPCS: 81025; 96372; 99284; 81003; 99283; J1885; J7512